=== PATIENT | female | born 2000 | race Caucasian/White ===

== ENCOUNTER 2021-02-23 09:48 | Emergency (ER) | payer BC, SELFPAY ==
[2021-02-23 10:09] VITALS: BP 94/77; PULSE 92; RESP 16; TEMP 35.9; O2SAT 98
--- NOTE | 2021-02-23 10:49 | ED.FEMALEGU ---
HPI - Female Genitourinary General Chief complaint: Urogenital-Female Stated complaint: UTI Time Seen by Provider: 02/23/21 10:41 Source: patient and RN notes reviewed Mode of arrival: ambulatory Limitations: no limitations History of Present Illness HPI Narrative: 20-year-old female presents with concern for urinary tract infection. Reports 2-day history of dysuria, frequency. She denies back pain, nausea, vomiting, abdominal pain, fever. Reports she took Azo last at 9 PM. Denies abnormal vaginal discharge, irritation, concern for STI. MD elicited complaint: UTI Related Data Allergies Allergy/AdvReac Type Severity Reaction Status Date / Time Serotonin 5HT-3 Antagonists Allergy Mild tachycardia Verified 02/23/21 10:51 Review of Systems Review of Systems: CONSTITUTIONAL: Denies malaise, chills, sweats, or fever. CARDIOVASCULAR: Denies chest pain, palpitations, or edema. RESPIRATORY: Denies cough or dyspnea. GASTROINTESTINAL: Denies abdominal pain, nausea, vomiting, diarrhea GENITOURINARY: Reports dysuria frequency. Denies urgency, flank pain, hematuria. SKIN: Denies rash or itching. MUSCULOSKELETAL: Denies back pain or myalgia. All systems reviewed & are unremarkable except as noted in HPI and below PMFSH Comments At time of signature, agree with nursing past medical, surgical, social and family history. There is no relevant family history pertinent to the presenting complaint Exam Narrative: GENERAL: Well-appearing, well-nourished, and in no acute distress. HEAD: Normocephalic. EYES: PERRLA, conjunctivae clear. NECK: Supple. No lymphadenopathy CHEST: Clear to auscultation. No respiratory distress. HEART: Regular rate and rhythm. ABDOMEN: Soft, nontender upon palpation, nondistended, normal active bowel sounds, no palpable or pulsatile masses, no guarding. No CVA tenderness SKIN: Warm, dry, no rash. NEURO: Alert and oriented x3. PSYCH: Normal mood and affect Course Course Emergency Course: Patient is aware of diagnosis, understands and agrees to treatment plan. Anticipatory guidance given. Patient agrees to follow-up as directed and is aware of reasons to seek care at the emergency department. Portions of this record may have been created with voice recognition software Vital Signs Vital signs: Vital Signs Temperature 96.7 F L 02/23/21 10:09 Pulse Rate 92 02/23/21 10:09 Respiratory Rate 16 08/12/21 10:09 Blood Pressure 94/77 L 02/23/21 10:09 Pulse Oximetry 98 02/23/21 10:09 Temperature 96.7 F L 02/23/21 10:09 Pulse Rate 92 02/23/21 10:09 Respiratory Rate 16 02/23/21 10:09 Blood Pressure 94/77 L 02/23/21 10:09 Pulse Oximetry 98 02/23/21 10:09 Reviewed. MDM - Female Genitourinary MDM Narrative Medical decision making narrative: Exam findings and UA show no acute concerns or changes; patient is non-toxic appearing and is in no distress. Patient is appropriate for outpatient treatment and follow-up. Differential Diagnosis Differential diagnosis: Likely urinary tract infection and cystitis Lab Data Labs: Urine Glucose Negative Reference Range: Negative Urine Bilirubin Negative Reference Range: Negative Urine Ketone Negative Reference Range: Negative Urine Specific [place] 1.005 Reference Range:1.001-1.035 Urine Blood 1+ Reference Range: Negative * * Urine pH 5.5 Reference Range: 5.0-9.0 Urine Protein Negative Reference Range: Negative Urine Urobilinogen
== END 2021-02-23 10:54 | disposition home or self-care (01) ==
PROVIDERS: Emergency Provider Nurse Practitioner
DX: N39.0 Urinary tract infection, site not specified (principal)
CPT/HCPCS: 81003; 87077; 87086; 87088; 87186; 99203; G0463

== ENCOUNTER 2021-07-04 14:43 | Emergency (ER) | payer BC, SELFPAY ==
[2021-07-04 14:56] VITALS: BP 117/74; PULSE 97; RESP 16; TEMP 36.6; O2SAT 100
--- NOTE | 2021-07-04 15:55 | ED.GENADULT ---
HPI - General Adult General Chief complaint: Urogenital-Female Stated complaint: POS UTI Source: patient Mode of arrival: ambulatory Limitations: no limitations History of Present Illness HPI narrative: Patient is a 20-year-old female presents to the urgent care via POV for evaluation of urinary symptoms that began yesterday. Additionally, she reports dysuria. Azo improves symptoms. Nothing worsens symptoms. She states she has a history of UTIs. Today symptoms are identical to previous UTIs. Related Data Home Medications Medication Instructions Recorded Confirmed buspirone mg 07/04/21 norethindrone ac-eth estradiol 1 tablet PO DAILY 07/04/21 07/04/21 Allergies Allergy/AdvReac Type Severity Reaction Status Date / Time Serotonin 5HT-3 Antagonists Allergy Mild tachycardia Verified 07/04/21 14:49 Review of Systems Review of Systems: Denies history of pyelonephritis and renal calculi. Pertinent negatives: fever, chills, sweats, change in appetite, poor p.o. intake, malaise, recent weight loss, myalgias, lymphadenopathy, headache, dizziness, STD exposure, painful intercourse, abdominal pain, constipation, nausea, vomiting, diarrhea, abdominal cramping, hematuria, urinary frequency/urgency, back pain, urinary incontinence, vaginal bleeding/discharge, penile drainage, testicular pain, shortness of breath, chest pain, and heart palpitations/murmurs. PMFSH Comments I have reviewed and agree with the patient's past medical, surgical, social, and family hx as documented by the RN. There is no relevant family history pertinent to the presenting complaint. Exam Narrative: GENERAL: Well-appearing, well-nourished, and in no acute distress. HEAD: Normocephalic, atraumatic. NECK: Supple. No lymphadenopathy or nuchal rigidity. CHEST: Lung sounds are clear to auscultation in bilateral lung sebastian. No respiratory distress. HEART: Regular rate and rhythm. No murmur, gallop, or rub heard. ABDOMEN: Soft, non-tender, non-distended, normal active bowel sounds in all quadrants. No guarding. No rebound tenderness. No pulsatile or palpable abdominal mass(es). No CVATGU: Bladder non-distended, non-tender EXTREMITIES: Normal range of motion. No edema. SKIN: Warm, dry, no rash. No skin color changes. Excellent turgor. NEURO: No focal deficits. Alert and oriented x3. SPECIAL OBSERVATIONS: Smiling. Laughing. No evidence of discomfort. Course Vital Signs Vital signs: Vital Signs Temperature 97.9 F 07/04/21 14:56 Pulse Rate 97 07/04/21 14:56 Respiratory Rate 16 07/04/21 14:56 Blood Pressure 117/74 07/04/21 14:56 Pulse Oximetry 100 07/04/21 14:56 Temperature 97.9 F 07/04/21 14:56 Pulse Rate 97 07/04/21 14:56 Respiratory Rate 16 07/04/21 14:56 Blood Pressure 117/74 07/04/21 14:56 Pulse Oximetry 100 07/04/21 14:56 Reviewed Medical Decision Making Differential Diagnosis Differential Diagnosis: Nephrolithiasis, urinary tract infection, pyelonephritis, frequency of micturition, dysuria Medical Records Medical records reviewed: Yes I reviewed the external patient's medical records. Vital Signs Vital Signs: Vital Signs Temperature 97.9 F 07/04/21 14:56 Pulse Rate 97 07/04/21 14:56 Respiratory Rate 16 07/04/21 14:56 Blood Pressure 117/74 07/04/21 14:56 Pulse Oximetry 100 07/04/21 14:56 Temperature 97.9 F 07/04/21 14:56 Pulse Rate 97 07/04/21 14:56 Respiratory Rate 16 07/04/21 14:56 Blood Pressure 117/74 07/04/21 14:56 Pulse Oximetry 100 07/04/21 14:56 Lab Data Lab results reviewed: Yes I reviewed the patient's lab results. Lab results narrative: Urine dipstick: Color: Yellow; Clarity: Clear; Glucose: negative; Bilirubin: negative; Ketones: negative, Specific [place]: 1.015; Blood: negative; pH: 6.5 Protein: negative; URO: 0.2 E.U/dL; Nitrites: Positive; Leukocytes: Trace Labs: Urine Glucose Negative
== END 2021-07-04 16:05 | disposition home or self-care (01) ==
PROVIDERS: Emergency Provider Nurse Practitioner Family
DX: N39.0 Urinary tract infection, site not specified (principal)
CPT/HCPCS: 81003; 87086; 99213; G0463

== ENCOUNTER 2023-03-26 14:04 | Emergency (ER) | payer BC, SELFPAY ==
[2023-03-26 14:31] VITALS: BP 120/68; PULSE 96; RESP 16; TEMP 36.2; O2SAT 99
--- NOTE | 2023-03-26 15:32 | ED.GENADULT ---
HPI - General Adult General Chief complaint: Urogenital-Female Stated complaint: UTI Source: patient Mode of arrival: ambulatory Limitations: no limitations History of Present Illness HPI narrative: Patient presents for evaluation of urinary symptoms since last night. Symptoms include dysuria, urinary frequency, hesitancy, decreased output with each void, and some pressure in her bladder. No fever, chills, nausea, vomiting, low back pain, vaginal bleeding/discharge. She believes she has a urinary tract infection. LMP 1 week ago. Compliant with oral contraception. Related Data Home Medications Medication Instructions Recorded Confirmed buspirone 10 mg tablet mg 07/04/21 norethindrone acetate 1 mg-ethinyl 1 tablet PO DAILY 07/04/21 07/04/21 estradiol 20 mcg tablet Allergies Allergy/AdvReac Type Severity Reaction Status Date / Time Serotonin 5HT-3 Antagonists Allergy Mild tachycardia Verified 03/26/23 14:44 Review of Systems Review of Systems: CONSTITUTIONAL: Denies fever, chills, or sweats. EYES: Denies visual changes, redness, or discharge. ENT: Denies rhinorrhea, congestion, sore throat, or otalgia. CARDIOVASCULAR: Denies chest pain, palpitations, or edema. RESPIRATORY: Denies cough or dyspnea. GASTROINTESTINAL: Denies abdominal pain, nausea, vomiting, or diarrhea. GENITOURINARY: Reports urinary frequency, hesitancy, dysuria, decrease urine output and pressure in her bladder. Denies vaginal bleeding/discharge. SKIN: Denies rash or itching. MUSCULOSKELETAL: Denies back pain, joint pain, or myalgia. NEUROLOGIC: Denies headache, numbness, dizziness, or weakness. PSYCHIATRIC: Denies anxiety or depression. [facility] Past Medical History Medical History Anxiety Surgical History Surgical History No pertinent past surgical history Family History Family History Mother Family history non-contributory Social History Social History Smoking status: Never smoker Substance use: never Additional living arrangements comments: lives with boyfriend Gender identity (if verbalized by the patient): Female Sexual Orientation (if Verbalized by the Patient): Straight or Heterosexual Spiritual care concerns: No Exam Narrative: GENERAL: Well-appearing, well-nourished, and in no acute distress. HEAD: Normocephalic, atraumatic. EYES: PERRLA and EOMI. ENT: Nares clear, no rhinorrhea or epistaxis. Mucous membranes moist. Oropharynx without tonsillar hypertrophy exudate or other lesions. Bilateral TMs pearly muhammad nonbulging NECK: Supple. No adenopathy or masses. No carotid bruits or JVD CHEST: Clear to auscultation. No respiratory distress. No wheezes rales or rhonchi HEART: Regular rate and rhythm. No murmur heard. Normal peripheral pulses. ABDOMEN: Soft, nondistended, normal active bowel sounds. Mild suprapubic tenderness without rebound or guarding. EXTREMITIES: Normal range of motion. No edema. SKIN: Warm, dry, no rash. NEURO: No focal deficits. Alert and oriented x3. PSYCH: Normal mood and affect. Course Course Emergency Course: this is a 22-year-old female who presented for evaluation of urinary symptoms. She has leukocytes in her urine today. Will discharge with Macrobid. I did offer to provide her with a script for pyridium, which she declined. Will send urine for culture. Increase hydration. [id number] agents for symptom management. Follow up with primary provider. Go to the emergency department for worsening symptoms. Patient in agreement with plan of care. Level of Care: Express Care Visit Vital Signs Vital signs: Vital Signs Temperature 36.2 C L 03/26/23 14:31 Pulse Rate 96 03/26/23 14:31 Respiratory Rate 16 03/26/23
== END 2023-03-26 15:34 | disposition home or self-care (01) ==
PROVIDERS: Emergency Provider Nurse Practitioner
DX: N30.00 Acute cystitis without hematuria (principal)
CPT/HCPCS: 81003; 87077; 87086; 87186; 99213; G0463

== ENCOUNTER 2023-05-31 17:16 | Emergency (ER) | payer BC, SELFPAY ==
[2023-05-31 17:34] VITALS: BP 124/75; PULSE 77; RESP 16; TEMP 36.7; O2SAT 99
--- NOTE | 2023-05-31 17:53 | ED.FEMALEGU ---
HPI - Female Genitourinary General Chief complaint: Urogenital-Female Stated complaint: urinary issue Time Seen by Provider: 05/31/23 17:53 Source: patient, RN notes reviewed and old records reviewed Mode of arrival: ambulatory Limitations: no limitations History of Present Illness HPI Narrative: 22-year-old female presents to the [facility] with concerns for UTI. Reports a history of UTIs. Reports burning, frequency, urgency. Denies any nausea or vomiting. Denies any concerns for STDs. Related Data Home Medications Medication Instructions Recorded Confirmed buspirone 10 mg tablet 10 mg PO DAILY 07/04/21 05/31/23 norethindrone acetate 1 mg-ethinyl 1 tablet PO DAILY 07/04/21 05/31/23 estradiol 20 mcg tablet Allergies Allergy/AdvReac Type Severity Reaction Status Date / Time Serotonin 5HT-3 Antagonists Allergy Mild tachycardia Verified 05/31/23 17:33 Review of Systems Review of Systems: All systems reviewed & are unremarkable except as noted in HPI and below Constitutional: Constitutional: Reports no additional constitutional complaints Eyes: Eyes: Reports no additional eye complaints ENT: Reports system reviewed and no additional complaints, except as documented Cardiovascular: Cardiovascular: Reports no additional cardiovascular complaints, Denies chest pain and Denies dyspnea Respiratory: Respiratory: Reports no additional respiratory complaints, Denies chest congestion, Denies cough and Denies dyspnea Gastrointestinal: Gastrointestinal: Reports no additional gastrointestinal complaints, Denies abdominal pain, Denies nausea and Denies vomiting Genitourinary: Genitourinary: Reports as per HPI Musculoskeletal: Musculoskeletal: Reports no additional musculoskeletal complaints Integumentary/Breasts: Skin/Breast: Reports system reviewed and no additional complaints, except as docu Neurologic: Reports system reviewed and no additional complaints, except as documented Psychiatric: Psychiatric: Reports no additional psychiatric complaints Allergic/Immunologic: Allergic/Immunologic: Reports no additional allergic/immunologic complaints [facility] Past Medical History Medical History (Updated 05/31/23 @ 17:59 by Betzy Guaman APRN) Anxiety Surgical History Surgical History No pertinent past surgical history Family History Family History Mother Family history non-contributory Social History Social History (Reviewed 05/31/23 @ 18:42 by MARCO Selby Smoking status: Never smoker Substance use: never Additional living arrangements comments: lives with boyfriend Gender identity (if verbalized by the patient): Female Sexual Orientation (if Verbalized by the Patient): Straight or Heterosexual Spiritual care concerns: No Comments At the time of my signature, I reviewed and agree with the nursing past medical, surgical, social, and family history. There is no relevant family history pertinent to the patient complaint. Exam Const: General: cooperative, healthy appearing, comfortable, no acute distress, well developed, alert and well nourished Nutritional Appearance: well nourished Orientation/consciousness: patient oriented x3 Limitations: no limitations HENMT: Head: normal to inspection Ears: hearing grossly normal bilaterally and external ears normal Face/Nose/Sinus: Normal external nose present, Normal nares present, Normal nasal mucous membranes and turbinates present, normal facial exam and face symmetric Face and sinus: normal facial exam and face symmetric Mouth: Yes Normal oral and palatal mucosa present, Yes lip normal and Yes moist mucous membranes Throat: posterior oropharynx normal and uvula midline Eyes: General: appearance normal, both eyes and all related structures Alignment and Position: alignment normal Periorbital: periorbital findings normal Pupils: Equ
== END 2023-05-31 18:04 | disposition home or self-care (01) ==
PROVIDERS: Emergency Provider Nurse Practitioner
DX: R30.0 Dysuria (principal); F41.9 Anxiety disorder, unspecified
CPT/HCPCS: 81003; 87086; 87088; 99213; G0463